=== PATIENT | male | born 1985 ===

== ENCOUNTER 2025-02-24 07:00 | Day surgery (SDC) | payer OTHER ==
[2025-02-24] MEDS ORDERED: CEFAZOLIN SODIUM 1,000 MG VIAL IV ONE (11:00)
== END 2025-02-24 12:10 | disposition home or self-care (01) ==
LOC: CIR.AMB 07:00
PROVIDERS: ATTEND Orthopaedic Surgery Hand Surgery
DX: D17.21 Benign lipomatous neoplasm of skin and subcutaneous tissue of right arm (principal); R22.31 Localized swelling, mass and lump, right upper limb